=== PATIENT | female | born 1960 | race Caucasian/White ===

== ENCOUNTER 2016-12-11 15:11 | Observation (INO) | payer MEDICAID, OTHER ==
[2016-12-11] VITALS (9 sets, daily range): BP systolic 108–161; BP diastolic 55–87; PULSE 66–85; RESP 16–20; O2SAT 96–98
[~2016-12-11] VITALS: Ht 152.4 cm; Wt 88.5 kg
--- NOTE | 2016-12-11 15:50 | ED.REPORT ---
HPI-General Illness Date of Service Dec 11, 2016 ED Provider: MD Manolo This is a 56 year old female presenting to the emergency department complaining of dizziness that began upon awakening today morning. Pt states she became very dizzy while getting out of bed and walking to the bathroom, reports she was unable to walk in a straight line due to dizziness. Dizziness progressively improved and is now resolved. Two hours ago she developed sudden onset blurred vision associated with substernal chest pain that radiated to the back with some facial numbness. Chest pain is resolved. Reports mild nausea and facial tingling at this time. Denies recent falls, trauma, neck injuries, headache, weakness, facial droop, slurred speech, blurred vision. Nursing Notes Stated Complaint: DIZZY, CHEST PAIN Chief Complaint: Dysrhythmia/Cardiac Nursing Notes Reviewed: Yes Allergies: Coded Allergies: acetaminophen (Verified Allergy, Severe, elevated liver enzymes, 12/11/16) meperidine (Verified Allergy, Severe, hives, vomiting, 12/11/16) morphine (Verified Allergy, Intermediate, hives, vomiting, 12/11/16) Penicillins (Verified Allergy, Mild, hives, 12/11/16) amoxicillin (Verified Allergy, Mild, hives, 12/11/16) clavulanic acid (Verified Allergy, Mild, hives, 12/11/16) duloxetine (Verified Allergy, Unknown, 12/11/16) NSAIDS (Non-Steroidal Anti-Inflamma (Verified Adverse Reaction, Severe, gi bleed, 12/11/16) Scheduled Atenolol (Atenolol) 50 Mg Tablet 50 MG PO HS Cholecalciferol (Vitamin D3) (Vitamin D3) 2,000 Unit Tablet 2,000 UNIT PO DAILY Cyanocobalamin/FA/Pyridoxine (B Complex-Folic Acid Tablet) 1 Each Tablet 1 EACH PO DAILY [place]-3 Fatty Acids (Fish Oil) 500 Mg Capsule.dr 500 MG PO DAILY Scheduled PRN Lansoprazole ODT (Prevacid ODT) 15 Mg Tablet 15 MG PO BID PRN PRN acid reflux General Time Seen by MD: 15:50 Chief Complaint Dizziness Hx Obtained From: Patient Arrived By: Walk-in Sudden in Onset?: Yes Onset Occurred: 5 - 8 hours ago Symptom Duration: Since onset Severity: Current: No pain currently Severity: Maximum: Mild Pertinent Negative: Pt denies other symptoms Recent Healthcare: No recent doctor visit, No recent hospitalization Similar Sx Previous: No Past Medical History Past Medical History Denies Past Surgical History Denies Ambulatory Status Independent Review of Systems Full Review of Systems Constitutional: Denies: Chills, Fever Respiratory: Denies: Non-productive cough, Shortness of breath Cardiovascular: Reports: Chest pain GI: Reports: Nausea, Denies: Abdominal pain, Constipation, Vomiting Skin: Denies Diaphoresis Neurologic: Reports: Dizziness, Numbness, Denies: Change LOC, Headache, Slurred speech Complete sys rev & neg: except as marked. Physical Exam Vital Signs Vital Signs Date Time Temp Pulse Resp B/P Pulse Ox O2 Delivery O2 Flow Rate FiO2 12/11/16 19:19 74 19 119/55 96 Room Air 12/11/16 18:45 74 20 146/82 96 Room Air 12/11/16 17:45 75 20 144/76 98 Room Air 12/11/16 16:30 85 19 146/61 97 Room Air 12/11/16 15:24 36.6 66 16 161/87 98 Room Air Initial VS: Reviewed General/Constitutional: Well-developed Head / Eyes: Atraumatic, Normocephalic, PERRL ENT: Mucous membranes moist, Conjunctiva normal, No scleral icterus Abdomen / GI: Soft, Non-tender, No guarding, No rebound, No distention Skin: Warm, Dry, No cyanosis Psychiatric: Mood/affect normal, Behavior normal, Normal thought content Neck: Supple, No meningismus, Full range of motion, No swelling, Non-tender, No masses Respiratory / Chest: Breath sounds NL, No respiratory distress, No rales, No rhonchi, No wheezing Cardiovascular: Heart rate NL, Regular rhythm, Heart sounds NL, Cap refill not delayed, Peripheral circulation NL Upper Extremities Upper Extremity / MS: Inspection NL, No swelling, Non-tender, No erythema, No deformity, Neurologic intact, Vascular intact, No clubbing/cyanosis Lower Extremity / Pelvis / MS: Inspection NL, No swelling, Non-tender, No erythema, No deformity, Neurologic intact, Vascular intact, No edema Neurologic: Oriented X3, Speech NL, No motor deficits No pronator drift, subjective decreased sensation about left side of face and ear. Romberg test: Not able to stand with eyes closed, falls backward. Interpretation & Diagnostics HEAD CTA IMPRESSION: 1. No acute intracranial process. 2. No evidence of vertebral artery dissection. 3. Posterior circulation. Anatomy as above. 4. No areas of hemodynamically significant stenosis, vascular occlusion or aneurysmal dilation within the posterior circulation. Dictated by: Alyssa Wallace M.D. on 12/11/2016 at 18:12 Transcribed by: LISY on 12/11/2016 at 18:43 Lab Results Interpretation Result Diagram: 12/11/16 1551 12/11/16 1551 Test 12/11/16 15:51 12/11/16 17:58 White Blood Count 7.3th/mm3 (3.8-10.1) Red Blood Count 4.91mil/mm3 (3.90-5.20) Hemoglobin 14.1g/dL (12.0-15.6) Hematocrit 43.5% (35.0-46.0) Mean Corpuscular Volume 88.6fL (81-100) Mean Corpuscular Hemoglobin 28.7pg (27.0-35.0) Mean Corpuscular Hemoglobin Concent 32.4% (32.0-37.0) Red Cell Distribution Width 13.4% (12.3-15.4) Platelet Count 304bil/L (150-400) Neutrophils (%) (Auto) 48.9% (40-74) Lymphocytes (%) (Auto) 40.2% (14-46) Monocytes (%) (Auto) 8.8% (4-12) Eosinophils (%) (Auto) 1.7% (0-5) Basophils (%) (Auto) 0.3% (0-3) Prothrombin Time 9.8sec (8.1-12.5) Prothromb Time International Ratio 0.92ratio Sodium Level 140mEq/L (134-144) Potassium Level 4.3mEq/L (3.5-5.2) Chloride Level 100mEq/L (97-108) Carbon Dioxide Level 28mmol/L (18-29) Blood Urea Nitrogen 17mg/dL (6-24) Creatinine 0.58mg/dL (0.57-1.00) Estimat Glomerular Filtration Rate 155mL/min (>59) Glucose Level 109mg/dL (60-99) Calcium Level 9.5mg/dL (8.5-10.1) Magnesium Level 2.2mg/dL (1.6-2.6) Total Bilirubin 0.2mg/dL (0.0-1.2) Aspartate Amino Transf (AST/SGOT) 17U/L (0-50) Alanine Aminotransferase (ALT/SGPT) 32U/L (0-32) Alkaline Phosphatase 81U/L (25-150) Troponin T < 0.010ug/L (0.0-0.011) Total Protein 7.5g/dL (6.4-8.4) Albumin 4.6g/dL (3.4-5.0) Hold [place] Top Tube Received (Received) Urine Color Yellow (YELLOW) Urine Appearance Hazy (CLEAR,HAZY) Urine pH 6.5 (5.0-8.0) Urine Specific [place] 1.005 (1.003-1.035) Urine Protein Negativemg/dL (NEG,TRACE) Urine Glucose (UA) Negativemg/dL (NEGATIVE) Urine Ketones Negativemg/dL (NEGATIVE) Urine Occult Blood Trace (NEGATIVE) Urine Nitrite Negative (NEGATIVE) Urine Bilirubin Negative (NEGATIVE) Urine Urobilinogen Normalmg/dL (NORMAL) Urine Leukocyte Esterase Negative (NEGATIVE) Urine RBC 0-2/hpf (0-2) Urine WBC 0-5/hpf (0-5) Urine Epithelial Cells Few/hpf (NONE-MOD) Urine Crystals None seen (NONE SEEN) Urine Bacteria Moderate/hpf (NONE-FEW) Urine Hyaline Casts None/lpf (NONE) Urine Granular Casts None seen (NONE SEEN) Urine Waxy Casts None seen (NONE SEEN) Urine Red Blood Cell Casts None seen (NONE SEEN) Urine White Blood Cell Casts None seen (NONE SEEN) Urine Mucus None seen (None Seen) Urine Trichomonas None seen (NONE SEEN) Urine Yeast None (NONE SEEN) Urinalysis Comment None Urine Culture Reflexed Indicated ECG Interpretation ECG Interpretation: NSR at a rate of 64 Normal axis, intervals, no ST segment changes, no acute t-wave abnormalities Time: 16:42 Interpreted by: ED physician X-Ray Chest Interpretation Chest Xray Interpretation: IMPRESSION: No acute cardiopulmonary disease. Dictated by: Mike Chauhan M.D. on 12/11/2016 at 16:55 Approved by: Mike Chauhan M.D. on 12/11/2016 at 16:55 Re-Eval/Medical Decision Med Decision/Clinical Course The patient is a generally healthy 56-year-old female who presents with severe vertiginous dizziness that has been present ever since waking up around 8 AM today. This is associated with left sided facial paresthesias. Examination the patient is afebrile stable vital signs that she has mild dysmetria with finger to nose testing on the left as well as a positive Romberg test. Of note she is extremely unsteady when standing with her eyes closed and falls backwards. While her vertiginous symptoms are worse with movement they have been constant throughout the day. EKG was obtained and interpreted by myself as documented above. CXR: Obtained, reviewed and interpreted by myself shows no evidence of acute infiltrates, effusions or pneumothorax. Cardiac and mediastinal silhouette normal. No bony or soft tissue abnormalities. Laboratory studies were notable as below: CBC unremarkable CMP unremarkable Coag normal Troponin normal UA moderate bacteria 0-5 WBC negative leuk esterase unconvincing for infection but sent for culture Due to concern for possible vertebral artery dissection CT angiography of the head and neck was obtained as below: 1. No acute intracranial process. 2. No evidence of vertebral artery dissection 3. Posterior circulation. Anatomy as above. 4. No areas of hemodynamically significant stenosis, vascular occlusion or aneurysmal dilation within the posterior circulation. While the above study is reassuring I remained concerned for possible central cause of the patient's vertigo. That being said, she is not a candidate for TPA. While she did report significant improvement here in the emergency department she continued to have vertiginous symptoms and I do not feel that her presentation can be easily attributed to peripheral etiologies. Therefore, the patient was admitted to the hospitalist service with plan for MRI of the brain to definitively rule out acute ischemic etiologies. She was transferred in stable condition. Time of Eval: 18:53 Re-Evaluation/Progress Note: Discussed need for admission, pt understands and agrees with plan, all questions addressed Consultation : Referral / Consult Name: Faizan Donovan MD Consulted With: Hospitalist Call Returned at: 18:53 Electrical Line Worker: Accepts admit Counseled Regarding: Diagnosis, Lab results, Need for follow-up, Need for admission Discharge & Departure Primary Impression: Vertigo Additional Impressions: Positive Romberg test Unsteady gait Left facial numbness Disposition: ADMITTED TO HOSPITAL Discharge Condition All VS Reviewed: Yes Condition: Stable Referrals: Cortez Edmonds MD (PCP) Scribe Attestation Portions of this note were transcribed by Bette Sellers. I, Dr. French personally performed the history, physical exam and medical decision-making; I reviewed and confirmed the accuracy of the information in the transcribed note. Signed by: gaby Clarke. 12/11/2016, 11:30. Ha French MD Dec 11, 2016 15:50 BETTE SELLERS Dec 11, 2016 15:54
[2016-12-11 16:00] LABS: BASOPHILS % (AUTO) 0.3 % (0-3); EOSINOPHILS % (AUTO) 1.7 % (0-5); MONOCYTES % (AUTO) 8.8 % (4-12); Mean Corpuscular Hemoglobin 28.7 pg (27.0-35.0); Mean Corpuscular Volume 88.6 fL (81-100); NEUTROPHILS % (AUTO) 48.9 % (40-74); Platelet Count 304 bil/L (150-400)
[2016-12-11 16:22] LABS: TROPONIN T < 0.010 ug/L (0.0-0.011)
[2016-12-11 16:33] LABS: INR 0.92 ratio; Magnesium 2.2 mg/dL (1.6-2.6)
--- NOTE | 2016-12-11 16:58 | DRSVH ---
PROCEDURE: X-RAY CHEST, TWO VIEWS ([id number]) INDICATIONS: chest pain TECHNIQUE: 2 views of the chest were acquired. COMPARISON: None. FINDINGS: Surgical changes and devices: None. Lungs and pleura: No pleural effusions or pneumothorax. Lungs are clear. Mediastinum: Mediastinal contours are normal. Heart size is normal. Bones and chest wall: No suspicious bony abnormalities. Soft tissues appear unremarkable. IMPRESSION: No acute cardiopulmonary disease. Dictated by: Mike Chauhan M.D. on 12/11/2016 at 16:55 Approved by: Miek Chauhan M.D. on 12/11/2016 at 16:55
[2016-12-11] MEDS ORDERED: ATEN50TA PO (17:37)
[2016-12-11] MEDS ORDERED: LANS15TA3 PO (17:37)
[2016-12-11] MEDS ORDERED: CYAN1TAB19 PO (17:38)
[2016-12-11] MEDS ORDERED: CHOL200025 PO (17:39)
[2016-12-11] MEDS ORDERED: OMEG500C PO (17:39)
[2016-12-11 18:33] LABS: APPEARANCE,URINE HAZY (CLEAR,HAZY); COLOR,URINE YELLOW (YELLOW); OCCULT BLOOD,URINE TRACE (NEGATIVE); PH,URINE 6.5 (5.0-8.0); UROBILINOGEN,URINE NORMAL (NORMAL)
--- NOTE | 2016-12-11 18:43 | DRSVH ---
Caution: Report not yet finalized and possibly incomplete! PROCEDURE: CT ANGIO HEAD AND NECK (P) INDICATIONS: vertebral artery dissection TECHNIQUE: Pre-contrast 4.5 mm thick sections acquired from the foramen magnum to the vertex. After the adminis tration of intravenous contrast, 1 mm thick sections acquired from the aortic arch through the [place] of [place]. Post-contrast 4.5 mm thick sections then re-acquired from the foramen magnum to the vert ex. 3-dimensional mrymmgz-fekhxwuxb-xuqovsqbrf (MIP) and/or volume rendering reformats were acquired of the central intracranial vasculature and neck separately. For radiation dose reduction, the foll owing was used: automated exposure control, adjustment of mA and/or kV according to patient size. COMPARISON: None. FINDINGS: Image quality: Excellent. BRAIN: CSF spaces: Ventricles are normal in size and shape. Basal cisterns are patent. No extra-axial flu id collections. Brain: No midline shift. No intracranial bleeds or masses. Leung-white matter interface appears int act. Skull and face: Calvarium and facial bones appear intact, without suspicious lesions. Orbits appear normal. Sinuses: Sinuses and mastoids are clear. HEAD CT ANGIOGRAPHY: Anterior circulation: Intracranial internal carotid arteries are normal in size and flow. The flow within the paired anterior cerebral arteries is normal and symmetric. The flow within the middle cer ebral arteries is normal and symmetric. The anterior communicating artery is seen. No aneurysms are seen. Posterior circulation: Visualized portions of the vertebral arteries demonstrate normal caliber, and join to form a normal appearing basilar artery. Anatomic variation is noted within the posterior cir culation. There appears to be presence of persistent bilateral circulations. In addition, the P 1 segments of the posterior cerebral artery appear to be hypoplastic/aplastic bilaterally. 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 NECK CT ANGIOGRAPHY: Carotid system: The great vessels demonstrate a conventional anatomy as they arise from the aortic a rch. The origins of the common carotid arteries appear patent. The common carotid arteries demonstr ate normal caliber and courses. The bifurcation regions are both widely patent. The internal caroti d arteries demonstrate normal calibers and courses. Posterior circulation: The origins of the vertebral arteries both appear widely patent. The more roy perior extracranial portions of both vertebral arteries also demonstrate normal courses and calibers. They join to form a normal appearing basilar artery. Soft tissues: Visualized neck soft tissues demonstrate no suspicious abnormalities. Bones: No suspicious bony lesions. Visualized cervical spine appears normally aligned. IMPRESSION: 1. No acute intracranial process. 2. No evidence of vertebral artery dissection. 3. Posterior circulation. Anatomy as above. 4. No areas of hemodynamically significant stenosis, vascular occlusion or aneurysmal dilation within the posterior circulation. Dictated by: Alyssa Wallace M.D. on 12/11/2016 at 18:12 Transcribed by: LISY on 12/11/2016 at 18:43
[2016-12-11] MEDS ORDERED: Alum-Mag Hydrox-Simeth 30 mL Suspension PO PRN ×2 (18:45→21:00)
[2016-12-11] MEDS ORDERED: Ondansetron 2 mg/mL 2 mL Inj IVPUSH PRN ×2 (18:45→21:00)
--- NOTE | 2016-12-11 20:30 | NUR ---
Admit Patient admitted to room 3029 at 1940 from ED, accompanied by daughter and . Alert and oriented. Med list entered while in ED, patient verified. Reports blurred vision, dizziness, lower back pain and chest pain at time of admit, but appeared comfortable. Oriented to room, call light, plan of care, hospital policies, intentional rounding. Telemetry placed. No skin issues. Instructed to use call light before getting out of bed, agreeable. Call light within reach, daughter staying overnight in room.
[2016-12-11] MEDS ORDERED: Polyethylene Glycol (PEG) 17 Gm Powder PO PRN (21:00)
--- NOTE | 2016-12-11 22:05 | PCM.HPMED ---
Subjective Date of Service Dec 11, 2016 Primary Provider: Admitting Physician: Faizan Donovan MD Primary Care Physician: Cortez Edmonds MD Attending Physician: Faizan Donovan MD Chief Complaint: Neurological complaints History of Present Illness: 56-year-old obese female with history of chronic back pain and irregular heart rhythm who presents with dizziness associated with gait unsteadiness that started upon getting up from bed this morning (waxing and waning throughout the day), and new onset blurry vision that started at approximately 2 PM today associated with left-sided chest pain with radiation to her mid back and left- sided facial numbness. Patient reports that she has been then [facility] over the last 15 years or so. She reports that this morning she awoke (did not feel dizzy in bed), and upon arising from bed felt dizzy (unable to specify lightheadedness versus spinning sensation) with associated unsteadiness on her feet, but denies any falls. She reports that this lasted approximately 15 minutes, and somewhat spontaneously resolved. Unfortunately, she reports that approximately 2 PM today she had sudden onset left-sided chest pain described as sharp/stabbing which radiated to her mid back associated with palpitations (described as butterfly feeling in her chest, and reports that this is not like her prior irregular heart rhythm), and shortly thereafter she experienced some migrating left-sided facial numbness, and diaphoresis of the neck. She subsequently presented to urgent care for evaluation, and was sent to the ER before seeing the doctor at urgent care. In addition to the above, she notes that she has had some numbness in the left fourth and fifth digits over the last couple of hours. At this time (it started after she arrived here at the hospital), she has a mild headache described as discomfort in her neck and back of the head and across her bilateral brow. In the ER she reportedly had some difficulties swallowing applesauce (denies coughing or choking) which was easily washed down with sips of water. Patient denies recent sick contacts, recent illness (with the exception of flulike upper respiratory illness in September of last year), she reports that she and her family were in [facility] several months ago, but denies any illnesses at that time or concerning exposures. Please note patient was seen by her primary care provider in February 2016 with complaints of dizziness which were occurring at frequent intervals. Patient reports that at that time she thinks the issue was her tramadol which was stopped. However, upon review of the outpatient record at that time, there is no indication that she was on tramadol at that time, and her provider did not pursue any further testing ( nothing is noted on exam). Of note, her daughter is present in the room, and notes that her mom's story has "changed" in the telling of it to several different members of staff here at the hospital. The patient denies changing her story. In the ER, labs are unremarkable, vitals are unremarkable, CTA of the head and neck is unremarkable. A chest x-ray was performed which was also unremarkable in addition to an unremarkable ECG. Given the concern for possible cerebral event patient was admitted to the hospital for further evaluation and close monitoring. Please note that patient had a positive Romberg test in the ER: She reportedly fell straight backwards when she closed her eyes standing with her feet together. Patient is admitted under observation status with expected length of stay less than 2 midnights due to severity of presenting symptoms, risk of adverse event, and complexity of treatment plan. Comprehensive review of systems conducted and was negative except for the pertinent positives listed in history of present illness above. Allergies Coded Allergies: acetaminophen (Verified Allergy, Severe, elevated liver enzymes, 12/11/16) meperidine (Verified Allergy, Severe, hives, vomiting, 12/11/16) morphine (Verified Allergy, Intermediate, hives, vomiting, 12/11/16) Penicillins (Verified Allergy, Mild, hives, 12/11/16) amoxicillin (Verified Allergy, Mild, hives, 12/11/16) clavulanic acid (Verified Allergy, Mild, hives, 12/11/16) duloxetine (Verified Allergy, Unknown, 12/11/16) NSAIDS (Non-Steroidal Anti-Inflamma (Verified Adverse Reaction, Severe, gi bleed, 12/11/16) Home Medications Patient reports taking the following: Atenolol 50 mg at hour of sleep Lansoprazole ODT 15 mg by mouth twice a day as needed for acid reflux PMH Chronic back and neck pain secondary to injury sustained at work status post L4- L5 laminectomy and decompression in 1989 Irregular heart rhythm apparently diagnosed in 2008-cardiac monitoring at that time diagnosed with sinus rhythm with rare PAC Hyperlipidemia not on medication Fatty liver noted on imaging Cholecystectomy Hysterectomy Bladder sling Tonsillectomy Abdominal hernia repair Left inguinal hernia repair Left shoulder bone spur repair Left arthroscopy of unspecified joint (suspect left shoulder) Carpal tunnel repair Tubal ligation Family History Father has prostate cancer which is apparently metastasized to his bones Mother has osteoporosis One of her grandmothers had heart disease A different grandmother had leukemia Social History Hx Alcohol Use: No Hx Substance Use: No Hx Tobacco Use: No Smoking Status: Never Smoker Living Arrangement: with Family (lives with her locally in [place]) Additional Information 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 External ears normal. Eyes: PERRL, EOMI. Anicteric sclerae. Conjunctivae are not injected. No nystagmus appreciated on exam. Patient able to read writing on the white board from across the room, but reports is blurry. Mouth: Mouth Normal, Mucous Membranes Moist/[place] Neck: Neck supple with full range of motion. No Thyromegaly. Trapezius muscle is tight on the left. Chest & Lungs: Clear to auscultation bilaterally with no crackles, wheezes, or rhonchi. Normal respiratory effort. Cardiovascular: Regular Rate/Rhythm, Normal S1, Normal S2, No Murmurs/Rubs/ Gallops. Radial pulses are 2+ bilaterally as are the posterior tibials. Abdomen: Non-tender, Non-distended, No masses, Normoactive bowel tones, Soft. With deep palpation patient reports discomfort in her right posterior hip ( which she states is a chronic discomfort) Musculoskeletal: Normal Range of Motion Extremities: No cyanosis/clubbing/edema bilat Neurological: Grossly Neurologically Intact, Cranial Nerves 2-12 Intact (with the exception of decreased sensation to light touch on the left face including the forehead), Normal Speech, Strength Normal 5/5 ext (with the exception of 4/ 5 plantar flexion on the left, and 2/5 dorsiflexion on the left), gait was not assessed at this time, Cerebellar Function nl Finger-Nose, Cerebellar Function nl Heel-Yao Skin: No rash appreciated on exam, no diaphoresis of the neck appreciated on exam. Psych: Normal mood and affect. Thought process and content intact. Lab and Diagnostics Labs Labs are unremarkable including negative troponin. UA shows moderate bacteria with few epithelial cells, and 0-5 WBCs. It was sent for culture Result Diagram: 12/11/16 1551 12/11/16 1551 Microbiology Urine culture pending X-Rays, CTs and MRIs Date of Service: 12/11/16 1529 PROCEDURE: X-RAY CHEST, TWO VIEWS ([id number]) IMPRESSION: No acute cardiopulmonary disease. Dictated by: Mike Chauhan M.D. on 12/11/2016 at 16:55 Date of Service: 12/11/16 1623 Caution: Report not yet finalized and possibly incomplete! PROCEDURE: CT ANGIO HEAD AND NECK (P) IMPRESSION: 1. No acute intracranial process. 2. No evidence of vertebral artery dissection. 3. Posterior circulation. Anatomy as above. 4. No areas of hemodynamically significant stenosis, vascular occlusion or aneurysmal dilation within the posterior circulation. Dictated by: Alyssa Wallace M.D. on 12/11/2016 at 18:12 12-lead ECG Sinus rhythm with rate of 64, intervals are within normal ranges, axis is normal , no ST or T-wave changes suggestive of ischemia. Cardiac Echo Impressions No cardiac echo on file. Assessment & Plan 56-year-old obese female with history of chronic back pain and irregular heart rhythm who presents with dizziness associated with gait unsteadiness that started upon getting up from bed this morning (waxing and waning throughout the day), and new onset blurry vision that started at approximately 2 PM today associated with left-sided chest pain with radiation to her mid back and left- sided facial numbness. # Acute onset dizziness, blurry vision, gait unsteadiness, left-sided facial numbness. Present on admission -Primary concern is TIA/stroke (symptoms somewhat suggestive of posterior circulation involvement) * CTA of the head and neck are negative * We will pursue MR to look specifically at the brain (without MR angiogram) * Checking lipid panel * Consideration for performing echocardiogram -ABCD2 score is 3 (systolic blood pressure greater than 140, duration greater than 60 minutes), low risk for stroke at 48 hours -Differential diagnosis includes benign positional vertigo (patient does not have nystagmus), complex migraine (outpatient notes mention headache/migraine as a diagnosis, but patient denies), some thought to potential cardiac involvement (arrhythmia of some kind)-however this does not seem to fit as her ECG is normal, and she continues to complain of these symptoms without any significant rhythm abnormalities on telemetry. MS is also on the differential as his vasculitis. -We will have nursing perform every 4 hours neuro checks throughout the night -Continue to monitor closely on telemetry -We will have nursing perform bedside evaluation of swallowing to assess for further possible difficulties, but otherwise patient not demonstrating any contraindications to advancing diet as tolerated at this time -Physical therapy will evaluate tomorrow, and patient has agreed to use call button for any activity out of bed. -Consideration for starting a daily aspirin -We will add an A1c and a TSH with reflex free T4 # Atypical chest pain (sharp, left breast, radiation to mid back, pleuritic), acute. Present on admission -Patient does have a history of irregular cardiac rhythm (for which she takes daily atenolol) -Patient's cardiac risk factors include: Nothing definitive at this time ( report of hyperlipidemia, but we do not know her values as we do not have access to her historical labs) -Differential includes: ACS (ECG and first troponin are negative, will trend troponin 3), aortic dissection/aneurysm (given the radiation to her back, but vital signs are all normal, and patient does not appear to be in distress- however this does not rule out this serious possibility), costochondritis ( higher likelihood given some degree of albeit nonspecific pain reproduction on palpation), muscle strain. -CTM telemetry -Consideration for CT angiogram of the chest to assess for possible dissection or aneurysm of the aorta should she become worse clinically. -Further considerations as noted above # Headache, acute. Present on admission -Consistent with cervicogenic etiology. -Close monitoring as noted in detail above -Patient reports allergies/intolerances to NSAIDs and Tylenol Chronic conditions: Chronic low back pain-we will provide hot pad -Fatty liver (noted incidentally on imaging)-LFTs are normal, and will not continue to monitor unless indicated by other clinical need -Hyperlipidemia-as noted above PRN MEDICATIONS - Acetaminophen as needed for mild pain/fever/headache - Bowel regimen as needed - Antiemetic as needed Patient is admitted under observation status with expected length of stay less than 2 midnights due to severity of presenting symptoms, risk of adverse event, and complexity of treatment plan. Pain Evaluation: Adequate Pain Control GI Prophylaxis: Proton Pump Inhibitor VTE Prophylaxis: Sub-Q Heparin (Unfractionated) Resuscitation Status: CPR: Attempt Resuscitation Attending Statement The patient was seen and examined together with Dr. Rodriguez on 12/11 and I agree with the history, exam and plan as outlined in the note above. copies to: Cortez Edmonds MD, Collin T DO Dec 11, 2016 22:05 Aly Stoner MD Dec 12, 2016 06:31
--- NOTE | 2016-12-11 22:07 | DRSVH ---
PROCEDURE: MRI BRAIN WITHOUT CONTRAST ([id number]) INDICATIONS: dizziness, unsteady, face numbness TECHNIQUE: Noncontrast axial T1 spin echo, axial T2 fast spin echo, sagittal and axial FLAIR, coronal T2 fast sp in echo, axial gradient echo, axial diffusion and ADC through the brain. COMPARISON: None. FINDINGS: Image quality: Excellent. CSF Spaces: Basal cisterns are patent. No extra-axial fluid collections. Ventricles are normal in size and shape. Brain: No intracranial masses or hemorrhage. Leung/white matter interface is normal. Brainstem appe ars normal. Diffusion-weighted images demonstrate no acute ischemic insult. No chronic ischemic ins ults. Normal intravascular flow voids are present. Skull and face: Calvarium has normal marrow signal. Orbits appear normal. Sinuses: Sinuses and mastoids are clear. IMPRESSION: 1. No acute intracranial process. Dictated by: Alyssa Wallace M.D. on 12/11/2016 at 22:04 Approved by: Alyssa Wallace M.D. on 12/11/2016 at 22:05
[2016-12-11] MEDS ORDERED: Pantoprazole 20 mg ER24 Tablet PO PRN (22:18)
--- NOTE | 2016-12-11 22:29 | NUR ---
Chest pain Patient reported chest pain at time of admit, but said that it wasn't too bad. When returning from MRI at 2200, patient said it was much worse, 05/28. Vital signs stable. MD garza, new order for stat EKG, one-time nitro tab, and continuing home med of Atenolol. EKG is normal. Telemetry reports no ectopy. Second troponin drawn, pending. Nitro given. Close monitoring in place. Addendum: 12/11/16 at 2246 by RYAN MILLER RN Patient placed on 2L nasal cannula at this time, was 98% on room air, then 96% on 2L. Will monitor. Addendum: 12/12/16 at 0634 by RYAN MILLER RN Patient's chest pain decreased from 9-10 after nitro tab was given. Later in the morning, patient said that when she lays on her side, there is no chest pain, but does have pain when on her back. Telemetry and vitals have been stable overnight.
[2016-12-12] VITALS (8 sets, daily range): BP systolic 118–143; BP diastolic 51–81; PULSE 62–68; RESP 18; O2SAT 94–96
[2016-12-12] MEDS: Heparin 5,000 Unit/mL Inj SUBQ SCH ×2 (00:17→09:01)
[2016-12-12] MEDS: Sodium Chloride LOK Flush 10 mL Syringe IVFLUSH SCH ×2 (00:17→09:04)
[2016-12-12 07:41] LABS: Magnesium 2.3 mg/dL (1.6-2.6)
[2016-12-12] MEDS ORDERED: Influenza (Adult) Vaccine 0.5 mL Syringe IM ONE (08:30)
--- NOTE | 2016-12-12 11:26 | PCM.DIMED ---
Discharge Instructions Date of Service Dec 12, 2016 Dates of Hospitalization Dec 11, 2016 at 19:20 Discharge Diagnosis Discharge Diagnosis Vertigo, likely benign paroxysmal chest pain, likely GI origin Patient Instructions You were hospitalized with vertigo, chest pain. Workups in the hospital didn't show signs of stroke. Your heart rhythms has been regular. It's possible that you had Vertigo likely symptoms due to condition called "BPPV", benign paroxysmal peripheral vertigo, which is benign condition. Consider taking Prilosec for your chest pain, to see if it improves. Please consider referral to cardiology for better diagnosis of your irregular heart rhythms. Follow-up plan Please see as scheduled in next week. Follow-up Provider: Cortez Edmonds MD Follow-up with PCP in: 1 week Jorden Frey MD Dec 12, 2016 11:26
--- NOTE | 2016-12-12 12:04 | NUR ---
Discharge Reviewed d/c instruction with pt including care notes, no new prescriptions, pt signed and given originals, copies to chart. IV d/c intact, tele removed. VS normal at time of d/c. All belongings packed by pt and will be taken with her. Pt getting dressed in room and will walk out on foot accompanied by family and friends. Care continues in meantime.
--- NOTE | 2016-12-12 16:00 | PCM.DC.MED ---
Discharge Summary Date of Service Dec 12, 2016 Dates of Hospitalization Date of Hospital Admission Dec 11, 2016 at 19:20 Date of Discharge: Dec 12, 2016 Providers: Admitting Physician: Faizan Donovan MD Primary Care Physician: Cortez Edmonds MD Attending Physician: Faizan Donovan MD Diagnosis at Time of Discharge Diagnosis at Time of Discharge Vertigo, likely benign paroxysmal versus TIA chest pain, likely GI origin Hyperlipidemia Chronic conditions: Chronic low back pain -Fatty liver Procedures XRay, CTs & MRIs Date of Service: 12/11/16 1529 PROCEDURE: X-RAY CHEST, TWO VIEWS ([id number]) IMPRESSION: No acute cardiopulmonary disease. Dictated by: Mike Chauhan M.D. on 12/11/2016 at 16:55 Date of Service: 12/11/16 1623 Caution: Report not yet finalized and possibly incomplete! PROCEDURE: CT ANGIO HEAD AND NECK (P) IMPRESSION: 1. No acute intracranial process. 2. No evidence of vertebral artery dissection. 3. Posterior circulation. Anatomy as above. 4. No areas of hemodynamically significant stenosis, vascular occlusion or aneurysmal dilation within the posterior circulation. Dictated by: Alyssa Wallace M.D. on 12/11/2016 at 18:12 ECG 12 Lead Sinus rhythm with rate of 64, intervals are within normal ranges, axis is normal , no ST or T-wave changes suggestive of ischemia. Cardiac Echo Impression No cardiac echo on file. Brief History HPI obtained by on 12/11 56-year-old obese female with history of chronic back pain and irregular heart rhythm who presents with dizziness associated with gait unsteadiness that started upon getting up from bed this morning (waxing and waning throughout the day), and new onset blurry vision that started at approximately 2 PM today associated with left-sided chest pain with radiation to her mid back and left- sided facial numbness. Patient reports that she has been then [facility] over the last 15 years or so. She reports that this morning she awoke (did not feel dizzy in bed), and upon arising from bed felt dizzy (unable to specify lightheadedness versus spinning sensation) with associated unsteadiness on her feet, but denies any falls. She reports that this lasted approximately 15 minutes, and somewhat spontaneously resolved. Unfortunately, she reports that approximately 2 PM today she had sudden onset left-sided chest pain described as sharp/stabbing which radiated to her mid back associated with palpitations (described as butterfly feeling in her chest, and reports that this is not like her prior irregular heart rhythm), and shortly thereafter she experienced some migrating left-sided facial numbness, and diaphoresis of the neck. She subsequently presented to urgent care for evaluation, and was sent to the ER before seeing the doctor at urgent care. In addition to the above, she notes that she has had some numbness in the left fourth and fifth digits over the last couple of hours. At this time (it started after she arrived here at the hospital), she has a mild headache described as discomfort in her neck and back of the head and across her bilateral brow. In the ER she reportedly had some difficulties swallowing applesauce (denies coughing or choking) which was easily washed down with sips of water. Patient denies recent sick contacts, recent illness (with the exception of flulike upper respiratory illness in September of last year), she reports that she and her family were in [facility] several months ago, but denies any illnesses at that time or concerning exposures. Please note patient was seen by her primary care provider in February 2016 with complaints of dizziness which were occurring at frequent intervals. Patient reports that at that time she thinks the issue was her tramadol which was stopped. However, upon review of the outpatient record at that time, there is no indication that she was on tramadol at that time, and her provider did not pursue any further testing ( nothing is noted on exam). Of note, her daughter is present in the room, and notes that her mom's story has "changed" in the telling of it to several different members of staff here at the hospital. The patient denies changing her story. In the ER, labs are unremarkable, vitals are unremarkable, CTA of the head and neck is unremarkable. A chest x-ray was performed which was also unremarkable in addition to an unremarkable ECG. Given the concern for possible cerebral event patient was admitted to the hospital for further evaluation and close monitoring. Please note that patient had a positive Romberg test in the ER: She reportedly fell straight backwards when she closed her eyes standing with her feet together. Patient is admitted under observation status with expected length of stay less than 2 midnights due to severity of presenting symptoms, risk of adverse event, and complexity of treatment plan. Comprehensive review of systems conducted and was negative except for the pertinent positives listed in history of present illness above. Hospital Course 56-year-old obese female with history of chronic back pain and irregular heart rhythm who presents with dizziness associated with gait unsteadiness that started upon getting up from bed this morning (waxing and waning throughout the day), and new onset blurry vision that started at approximately 2 PM today associated with left-sided chest pain with radiation to her mid back and left- sided facial numbness. acute problems 1. dizziness associated with gait unsteadiness pt was admitted with concern for stroke/TIA. CT of brain, CTA of head and neck, MRI of brain all showed no acute findings, pt was closely monitored on telemetry given hx of irregular rhythms. On telemetry, it didn't show any arrhythmia including PVCs, although pt stated that she is taking atenolol Rxed by PCP for "a lot of PVCs", Orthostatic v/s were negative, symptoms were not reproduced with orthostatic. TFT was normal. pt was ambulating with normal gait , non-focal on neuro exam. TIA is still possible given remarkably high [id number]( couldn't tolerate statins at all), but more suggestive of BPPV, regardless given stable clinical status, pt deemed safe for d/c to home. 2. Atypical chest pain (sharp, left breast, radiation to mid back, pleuritic), serial troponins were negative, EKG didn't show ischemic changes, symptoms relatively controlled. It's thought to be GI origin given hx of GERD or MSK, recommended PPI or pain control with tylenol or NSAID. 3. Hyperlipidemia, LDL [id number], indicated high-intensity statin but given intolerability, pt may benefit from PCSK9 inhibitors, defer discussion to PCP Chronic conditions: Chronic low back pain -Fatty liver Exam Vital Signs (Last) Date Time Temp Pulse Resp B/P Pulse Ox O2 Delivery O2 Flow Rate FiO2 12/12/16 09:38 130/81 12/12/16 09:34 36.7 62 18 95 Room Air 12/11/16 22:34 2.00 Exam NAD, comfortably laying down on the bed no JVD, MMM, no LAD RRR, nl s1, s2 no mrg CTAB, no w,c S,ND,NT,normoactive BS+ warm, no edema, pulses 2/2 Test 2/23/17 15:51 12/11/16 17:58 12/11/16 22:00 12/12/16 06:57 White Blood Count 7.3th/mm3 (3.8-10.1) Red Blood Count 4.91mil/mm3 (3.90-5.20) Hemoglobin 14.1g/dL (12.0-15.6) Hematocrit 43.5% (35.0-46.0) Mean Corpuscular Volume 88.6fL (81-100) Mean Corpuscular Hemoglobin 28.7pg (27.0-35.0) Mean Corpuscular Hemoglobin Concent 32.4% (32.0-37.0) Red Cell Distribution Width 13.4% (12.3-15.4) Platelet Count 304bil/L (150-400) Neutrophils (%) (Auto) 48.9% (40-74) Lymphocytes (%) (Auto) 40.2% (14-46) Monocytes (%) (Auto) 8.8% (4-12) Eosinophils (%) (Auto) 1.7% (0-5) Basophils (%) (Auto) 0.3% (0-3) Prothrombin Time 9.8sec (8.1-12.5) Prothromb Time International Ratio 0.92ratio Hemoglobin A1c 5.8% (4.8-5.6) Total Bilirubin 0.2mg/dL (0.0-1.2) Aspartate Amino Transf (AST/SGOT) 17U/L (0-50) Alanine Aminotransferase (ALT/SGPT) 32U/L (0-32) Alkaline Phosphatase 81U/L (25-150) Total Protein 7.5g/dL (6.4-8.4) Albumin 4.6g/dL (3.4-5.0) Thyroid Stimulating Hormone (TSH) 1.390uIU/mL (0.450-4.500) Free Thyroxine 1.01ng/dL (0.82-1.77) Hold [place] Top Tube Received (Received) Urine Color Yellow (YELLOW) Urine Appearance Hazy (CLEAR,HAZY) Urine pH 6.5 (5.0-8.0) Urine Specific [place] 1.005 (1.003-1.035) Urine Protein Negativemg/dL (NEG,TRACE) Urine Glucose (UA) Negativemg/dL (NEGATIVE) Urine Ketones Negativemg/dL (NEGATIVE) Urine Occult Blood Trace (NEGATIVE) Urine Nitrite Negative (NEGATIVE) Urine Bilirubin Negative (NEGATIVE) Urine Urobilinogen Normalmg/dL (NORMAL) Urine Leukocyte Esterase Negative (NEGATIVE) Urine RBC 0-2/hpf (0-2) Urine WBC 0-5/hpf (0-5) Urine Epithelial Cells Few/hpf (NONE-MOD) Urine Crystals None seen (NONE SEEN) Urine Bacteria Moderate/hpf (NONE-FEW) Urine Hyaline Casts None/lpf (NONE) Urine Granular Casts None seen (NONE SEEN) Urine Waxy Casts None seen (NONE SEEN) Urine Red Blood Cell Casts None seen (NONE SEEN) Urine White Blood Cell Casts None seen (NONE SEEN) Urine Mucus None seen (None Seen) Urine Trichomonas None seen (NONE SEEN) Urine Yeast None (NONE SEEN) Urinalysis Comment None Urine Culture Reflexed Indicated Troponin T 0.010ug/L (0.0-0.011) Sodium Level 143mEq/L (134-144) Potassium Level 4.2mEq/L (3.5-5.2) Chloride Level 102mEq/L (97-108) Carbon Dioxide Level 27mmol/L (18-29) Blood Urea Nitrogen 13mg/dL (6-24) Creatinine 0.72mg/dL (0.57-1.00) Estimat Glomerular Filtration Rate 121mL/min (>59) Glucose Level 106mg/dL (60-99) Calcium Level 9.0mg/dL (8.5-10.1) Magnesium Level 2.3mg/dL (1.6-2.6) Triglycerides Level 358mg/dL (0-149) Cholesterol Level 299mg/dL (100-199) LDL Cholesterol, Calculated 189.400mg/dL (0-99) VLDL Cholesterol 71.600mg/dL HDL Cholesterol 38mg/dL (>39) Cholesterol/HDL Ratio 7.87 (0.0-4.4) Microbiology Results Urine culture pending Discharge Medications Discharge Medications Atenolol (Atenolol) 50 Mg Tablet 50 MG PO HS (Reported) Cholecalciferol (Vitamin D3) (Vitamin D3) 2,000 Unit Tablet 2,000 UNIT PO DAILY (Reported) Cyanocobalamin/FA/Pyridoxine (B Complex-Folic Acid Tablet) 1 Each Tablet 1 EACH PO DAILY (Reported) [place]-3 Fatty Acids (Fish Oil) 500 Mg Capsule.dr 500 MG PO DAILY (Reported) As needed Lansoprazole ODT (Prevacid ODT) 15 Mg Tablet 15 MG PO BID PRN PRN acid reflux ( Reported) Followup Plan Disposition: home Follow-up plan Please see as scheduled in next week. Patient Instructions You were hospitalized with vertigo, chest pain. Workups in the hospital didn't show signs of stroke. Your heart rhythms has been regular. It's possible that you had Vertigo likely symptoms due to condition called "BPPV", benign paroxysmal peripheral vertigo, which is benign condition. Consider taking Prilosec for your chest pain, to see if it improves. Please consider referral to cardiology for better diagnosis of your irregular heart rhythms. Follow-up Provider: Cortez Edmonds MD Follow-up with PCP in: 1 week Time spent 65min Jorden Frey MD Dec 12, 2016 15:48
== END 2016-12-12 12:10 | disposition home or self-care (01) ==
LOC: SED 15:11 → MPC 19:20
PROVIDERS: ADMIT Internal Medicine; ATTEND Internal Medicine
DX: R42 Dizziness and giddiness (principal); R26.81 Unsteadiness on feet; R07.9 Chest pain, unspecified; E78.5 Hyperlipidemia, unspecified; M54.5 Low back pain; K76.0 Fatty (change of) liver, not elsewhere classified; E66.9 Obesity, unspecified; I49.9 Cardiac arrhythmia, unspecified; Z23 Encounter for immunization
CPT/HCPCS: 36415; 70496; 70498; 70551; 71020; 80048; 80053; 80061; 81000; 83036; 83735; 84439; 84443; 84484; 85025; 85610; 87086; 90471; 93005; 96374; 99285; G0378; G0463; J1644; J2405; Q2039; Q9967